=== PATIENT | female | born 1995 | race Caucasian/White ===

== ENCOUNTER → 2024-05-16 13:17 | Outpatient (REF) | payer BC, SELFPAY | LOC: PNTC 13:17 | PROVIDERS: ATTENDING PHYSICIAN Student in an Organized Health Care Education/Training Program | DX: O35.5XX0 Maternal care for (suspected) damage to fetus by drugs, not applicable or unspecified (principal) | CPT/HCPCS: 76811 ==

== ENCOUNTER → 2024-08-07 10:34 | Outpatient (REF) | payer BC, SELFPAY | LOC: PNTC 10:34 | PROVIDERS: ATTENDING PHYSICIAN Obstetrics & Gynecology | DX: Z34.93 Encounter for supervision of normal pregnancy, unspecified, third trimester (principal) | CPT/HCPCS: 36415; 86850; 86900; 86901; 96372; J2790 ==

== ENCOUNTER 2024-09-23 06:26 | Inpatient (IN) | payer BC, SELFPAY ==
[2024-09-23 06:49] VITALS: BP 125/75; BMI 31.3
[2024-09-23] MEDS: LR 1000 IV ×2 (07:24→08:10)
[2024-09-23 07:39] LABS: % Basophils 0.2 % (0-2); % Eosinophils 0.9 % (0-6); % Immature Granulocytes 1.9 % (0-0.5); % Lymphocytes 19.2 % (20.5-51.1); % Monocytes 6.8 % (1.7-9.3); Absolute Eosinophils 0.1 10^3/uL (0-0.7); Absolute Immature Granulocytes 0.2 10^3/uL (0-0.05); Absolute Lymphocytes 1.8 10^3/uL (1.2-3.4); Absolute Monocytes 0.6 10^3/uL (0.1-0.6); Absolute Neutrophils 6.6 10^3/uL (1.4-6.5); Hematocrit 42.2 % (37.0-47.0); Hemoglobin 14.5 g/dL (12.0-16.0); Mean Corp Hgb Conc. 34.4 g/dL (33.0-37.0); Mean Corpuscular Hgb 29.4 pg (27.0-31.0); Mean Corpuscular Volume 85.4 fL (81.0-99.0); Mean Platelet Volume 10.3 fL (7.4-10.4); Nucleated Red Blood Cells % 0 %; Platelet Count 207 10^3/uL (130-400); Red Blood Cell Count 4.94 10^6/uL (4.20-5.40); Red Cell Dist. Width 13.4 % (11.5-14.5); White Blood Cell Count 9.3 10^3/uL (4.8-10.8)
[2024-09-23] MEDS: SUBLIMAZE 100 MCG EPIDURAL (07:49)
[2024-09-23] MEDS: FENTANYL/BUPIVACAINE 100 EPIDURAL (07:49)
[2024-09-23] MEDS: CYTOTEC 800 MCG RECTAL (09:07)
[2024-09-23] MEDS: PITOCIN 30 UNITS/NSS 500 ML IV (09:16)
[2024-09-23] MEDS: PRENATAL PLUS PO (12:40)
[2024-09-23] MEDS: ZOLOFT PO (12:40)
[2024-09-23] MEDS: MOTRIN 600 MG PO (18:04)
[2024-09-23] MEDS: TYLENOL 650 MG PO (20:08)
[2024-09-24] MEDS: MOTRIN 600 MG PO ×2 (02:05→09:15)
[2024-09-24 05:35] LABS: Hematocrit 42.4 % (37.0-47.0)
[2024-09-24] MEDS: ZOLOFT 50 MG PO (09:14)
[2024-09-24] MEDS: PRENATAL PLUS 1 TABLET PO (09:14)
[2024-09-24 10:50] LABS: Syphilis/T. pallidum Ab Reflex Negative (Negative)
== END 2024-09-24 11:46 | disposition home or self-care (01) | DRG 807 ==
LOC: LDRP 06:26
PROVIDERS: Student in an Organized Health Care Education/Training Program; ADMITTING PHYSICIAN Obstetrics & Gynecology; FAMILY PHYSICIAN Family Medicine
PROC: 10E0XZZ Delivery of Products of Conception, External Approach (ICD-10-PCS; 2024-09-23)
PROC: 0KQM0ZZ Repair Perineum Muscle, Open Approach (ICD-10-PCS; 2024-09-23)
PROC: 10907ZC Drainage of Amniotic Fluid, Therapeutic from Products of Conception, Via Natural or Artificial Opening (ICD-10-PCS; 2024-09-23)
DX: O76 Abnormality in fetal heart rate and rhythm complicating labor and delivery (principal); Z37.0 Single live birth; Z3A.40 40 weeks gestation of pregnancy; O70.1 Second degree perineal laceration during delivery; O99.344 Other mental disorders complicating childbirth; F41.9 Anxiety disorder, unspecified; F32.A Depression, unspecified; O77.0 Labor and delivery complicated by meconium in amniotic fluid
CPT/HCPCS: 85014; 85018; 85025; 86780; 86850; 86870; 86900; 86901